=== PATIENT | male | born 1975 | race African-American/Black ===

== ENCOUNTER 2021-02-19 19:15 | Emergency (ER) | payer SELFPAY ==
[2021-02-19] MEDS ORDERED: Ibuprofen 600 MG Tab PO ONE (20:02)
--- NOTE | 2021-02-19 20:23 | EDM.PDOC ---
ED HPI GENERAL MEDICAL PROBLEM - General Chief Complaint: Fever Stated Complaint: chills Time Seen by Provider: 02/19/21 19:23 Source of Information: Reports: Patient History Limitations: Reports: No Limitations - History of Present Illness INITIAL COMMENTS - FREE TEXT/NARRATIVE: 45-year-old male presents the emergency department with 4-day history of fever, body aches, joint aches, headache and nausea. Patient states he recently returned from visiting [facility] from January 15 through February 02. He did not have any vaccinations prior to travel. States that about 4 days ago he started having chills and body aches which has progressed into a severe headache and nausea and mild sore throat. He denies any cough or shortness of breath. He denies any upper respiratory type symptoms. He states his appetite has been "on and off ". He is still taking p.o. fluids appropriately. He still can taste and smell his food. He states he had his Covid vaccination in October. He had been [place] vaccine. The patient is otherwise healthy. He does not take any prescription medications and he does not have a primary care provider. Of note, the patient has had malaria approximately 15 years ago and he states that his symptoms that he is having at this time feel quite similar to when he had malaria in the past. - Related Data Allergies Allergy/AdvReac Type Severity Reaction Status Date / Time No Known Allergies Allergy Verified 02/19/21 19:27 Home Meds: Home Meds . [No Known Home Meds] 02/19/21 [History] Social & Family History - Tobacco Use Tobacco Use Status *Q: Never Tobacco User Second Hand Smoke Exposure: No - Recreational Drug Use Recreational Drug Use: No ED ROS GENERAL - Review of Systems Review Of Systems: See Below Constitutional: Reports: Fever, Chills, Malaise, Decreased Appetite HEENT: Reports: Throat Pain Respiratory: Reports: No Symptoms Cardiovascular: Reports: No Symptoms Endocrine: Reports: No Symptoms GI/Abdominal: Reports: Decreased Appetite, Nausea. Denies: Abdominal Pain, Constipation, Diarrhea, Vomiting : Reports: No Symptoms Musculoskeletal: Reports: Joint Pain (generalized), Other (generalized body aches) Skin: Reports: No Symptoms Neurological: Reports: Headache Psychiatric: Reports: No Symptoms Hematologic/Lymphatic: Reports: No Symptoms Immunologic: Reports: No Symptoms ED EXAM, GENERAL - Physical Exam Exam: See Below Exam Limited By: No Limitations General Appearance: Alert, WD/WN, Moderate Distress Eye Exam: Bilateral Eye: EOMI Ears: Normal External Exam, Hearing Grossly Normal Nose: Normal Inspection Throat/Mouth: Normal Inspection, Normal Lips, Normal Voice, No Airway Compromise Head: Atraumatic, Normocephalic Neck: Normal Inspection, Supple, Non-Tender, Full Range of Motion Respiratory/Chest: No Respiratory Distress, Lungs Clear, Normal Breath Sounds, No Accessory Muscle Use, Chest Non-Tender Cardiovascular: Normal Peripheral Pulses, Regular Rate, Rhythm, No Murmur Peripheral Pulses: 2+: Radial (L), Radial (R) GI/Abdominal: Normal Bowel Sounds, Soft, Non-Tender, No Distention (Male) Exam: Deferred Rectal (Males) Exam: Deferred Back Exam: Normal Inspection Extremities: Normal Inspection, Normal Range of Motion, Non-Tender, No Pedal Edema, Normal Capillary Refill Neurological: Alert, Oriented, Normal Cognition Psychiatric: Normal Affect, Normal Mood Skin Exam: Warm, Dry, Intact, Normal Color, No Rash Lymphatic: No Adenopathy Course - Vital Signs Text/Narrative:: Upon assessment, the patient complains of a moderate headache. He states he took Tylenol earlier today. I have ordered for him to receive ibuprofen 600 mg. He is alert and oriented x3. He does not have any blurred vision or double vision. States he has generalized body aches and chills. His lungs are clear to auscultation and he denies any abdominal pain or discomfort. He denies any urinary symptoms. I have ordered labs to include a CBC, CMP, C-reactive protein, blood cultures x2, lactic acid level with reflex, strep a swab, Covid swab, and portable chest x-ray. I have also ordered UA with micro and culture if indicated. I have contacted infectious diseases from [place]. The [place] [facility] call nurse was going to get a hold of the infectious disease physician who is on-call and to call me back. I am most concerned that the patient could have contracted malaria while he was there as he did not have any vaccinations prior to travel. Last Recorded V/S: Last Vital Signs Temp 99 F 02/19/21 19:22 Pulse 101 H 02/19/21 19:22 Resp 18 02/19/21 19:22 BP 123/74 02/19/21 19:22 Pulse Ox 95 02/19/21 19:22 - Orders/Labs/Meds Orders: Active Orders 24 hr Category Date Time Status CULTURE BLOOD [BC] Stat Lab 02/19/21 20:00 Received CULTURE BLOOD [BC] Stat Lab 02/19/21 20:06 Received CULTURE URINE [MREF] Stat Lab 02/19/21 20:28 Received Sodium Chloride 0.9% [Normal Saline] 1,000 ml Med 02/19/21 21:00 Active IV ASDIRECTED Blood Culture x2 Reflex Set [OM.PC] Stat Oth 02/19/21 19:42 Ordered Medication Orders Sodium Chloride (Normal Saline) 1,000 mls @ 100 mls/hr IV ASDIRECTED TAWANNA Last Admin: 02/19/21 21:35 Dose: 100 mls/hr Documented by: ROSALIO Labs: Laboratory Tests 02/19/21 02/19/21 02/19/21 Range/Units 19:35 20:00 20:00 WBC 7.86 (4.23-9.07) K/mm3 RBC 5.04 (4.63-6.08) M/mm3 Hgb 14.4 (13.7-17.5) gm/dl Hct 42.1 (40.1-51.0) % MCV 83.5 (79.0-92.2) fl MCH 28.6 (25.7-32.2) pg MCHC 34.2 (32.2-35.5) g/dl RDW Std Deviation 39.8 (35.1-43.9) fL Plt Count 76 L (163-337) K/mm3 MPV 12.3 (9.4-12.3) fl Neut % (Auto) 87.3 H (34.0-67.9) % Lymph % (Auto) 6.0 L (21.8-53.1) % [place] % (Auto) 6.1 (5.3-12.2) % Eos % (Auto) 0.1 L (0.8-7.0) Baso % (Auto) 0.1 (0.1-1.2) % Neut # (Auto) 6.86 H (1.78-5.38) K/mm3 Lymph # (Auto) 0.47 L (1.32-3.57) K/mm3 [place] # (Auto) 0.48 (0.30-0.82) K/mm3 Eos # (Auto) 0.01 L (0.04-0.54) K/mm3 Baso # (Auto) 0.01 (0.01-0.08) K/mm3 Manual Slide Review Abnormal smear Sodium 133 L (136-145) mEq/L Potassium 3.6 (3.5-5.1) mEq/L Chloride 98 (98-107) mEq/L Carbon Dioxide 24 (21-32) mEq/L Anion Gap 14.6 (5-15) BUN 20 H (7-18) mg/dL Creatinine 1.2 (0.7-1.3) mg/dL Est Cr Clr Drug Dosing 81.05 mL/min Estimated GFR (MDRD) > 60 (>60) mL/min BUN/Creatinine Ratio 16.7 (14-18) Glucose 111 H (70-99) mg/dL Lactic Acid (0.4-2.0) mmol/L Calcium 8.3 L (8.5-10.1) mg/dL Total Bilirubin 7.7 H (0.2-1.0) mg/dL AST 91 H (15-37) U/L ALT 59 (16-63) U/L Alkaline Phosphatase 122 H (46-116) U/L C-Reactive Protein 21.0 H* (<1.0) mg/dL Total Protein 7.0 (6.4-8.2) g/dl Albumin 3.2 L (3.4-5.0) g/dl Globulin 3.8 gm/dL Albumin/Globulin Ratio 0.8 L (1-2) Urine Color (Yellow) Urine Appearance (Clear) Urine pH (5.0-8.0) Ur Specific Henderson (1.005-1.030) Urine Protein (Negative) Urine Glucose (UA) (Negative) Urine Ketones (Negative) Urine Occult Blood (Negative) Urine Nitrite (Negative) Urine Bilirubin (Negative) Urine Urobilinogen (0.2-1.0) Ur Leukocyte Esterase (Negative) Urine RBC (0-5) /hpf Urine WBC (0-5) /hpf Ur Epithelial Cells (0-5) /hpf Urine Bacteria (FEW) /hpf Urine Mucus (FEW) /hpf SARS-CoV-2 RNA (MO) (NEGATIVE) Group A Strep (PCR) Not detected (NOT DETECT) 02/19/21 02/19/21 02/19/21 Range/Units 20:06 20:20 20:28 WBC (4.23-9.07) K/mm3 RBC (4.63-6.08) M/mm3 Hgb (13.7-17.5) gm/dl Hct (40.1-51.0) % MCV (79.0-92.2) fl MCH (25.7-32.2) pg MCHC (32.2-35.5) g/dl RDW Std Deviation (35.1-43.9) fL Plt Count (163-337) K/mm3 MPV (9.4-12.3) fl Neut % (Auto) (34.0-67.9) % Lymph % (Auto) (21.8-53.1) % [place] % (Auto) (5.3-12.2) % Eos % (Auto) (0.8-7.0) Baso % (Auto) (0.1-1.2) % Neut # (Auto) (1.78-5.38) K/mm3 Lymph # (Auto) (1.32-3.57) K/mm3 [place] # (Auto) (0.30-0.82) K/mm3 Eos # (Auto) (0.04-0.54) K/mm3 Baso # (Auto) (0.01-0.08) K/mm3 Manual Slide Review Sodium (136-145) mEq/L Potassium (3.5-5.1) mEq/L Chloride (98-107) mEq/L Carbon Dioxide (21-32) mEq/L Anion Gap (5-15) BUN (7-18) mg/dL Creatinine (0.7-1.3) mg/dL Est Cr Clr Drug Dosing mL/min Estimated GFR (MDRD) (>60) mL/min BUN/Creatinine Ratio (14-18) Glucose (70-99) mg/dL Lactic Acid 0.8 (0.4-2.0) mmol/L Calcium (8.5-10.1) mg/dL Total Bilirubin (0.2-1.0) mg/dL AST (15-37) U/L ALT (16-63) U/L Alkaline Phosphatase (46-116) U/L C-Reactive Protein (<1.0) mg/dL Total Protein (6.4-8.2) g/dl Albumin (3.4-5.0) g/dl Globulin gm/dL Albumin/Globulin Ratio (1-2) Urine Color Jennifer H (Yellow) Urine Appearance Clear (Clear) Urine pH 6.5 (5.0-8.0) Ur Specific Henderson 1.020 (1.005-1.030) Urine Protein 3+ H (Negative) Urine Glucose (UA) Trace H (Negative) Urine Ketones Trace H (Negative) Urine Occult Blood 1+ H (Negative) Urine Nitrite Positive H (Negative) Urine Bilirubin 2+ H (Negative) Urine Urobilinogen >=8.0 H (0.2-1.0) Ur Leukocyte Esterase Negative (Negative) Urine RBC 0-5 (0-5) /hpf Urine WBC 5-10 H (0-5) /hpf Ur Epithelial Cells 0-5 (0-5) /hpf Urine Bacteria Many H (FEW) /hpf Urine Mucus Rare (FEW) /hpf SARS-CoV-2 RNA (MO) Negative (NEGATIVE) Group A Strep (PCR) (NOT DETECT) Meds: Medications Generic Name Dose Route Start Last Admin Trade Name Freq PRN Reason Stop Dose Admin Sodium Chloride 1,000 mls @ 100 mls/hr 02/19/21 21:00 02/19/21 21:35 Normal Saline IV 100 mls/hr ASDIRECTED TAWANNA Administration Discontinued Medications Generic Name Dose Route Start Last Admin Trade Name Freq PRN Reason Stop Dose Admin Ibuprofen 600 mg 02/19/21 20:02 02/19/21 20:23 Ibuprofen 600 Mg Tab PO 02/19/21 20:03 600 mg ONETIME ONE Administration - Re-Assessments/Exams Free Text/Narrative Re-Assessment/Exam: 02/19/21 20:[address] Mckeon, infectious disease specialist at [facility] in [place] and she recommends that the patient have a malaria smear completed or at least an antigen test. We do not have that rapid test available at our facility. So I feel this patient does need to be transferred to a facility capable for testing and treating possibility of him having malaria. I did speak with the emergency room physician Dr. Baugh, at [facility] and he agreed to accept the patient in transport. I have ordered for the patient to receive normal saline at 100 mL's per hour and he will be transported via ambulance. The patient was awaiting aware of this and he has agreed. 02/19/21 21:55 Hematology reveals a WBC of 7.86, hemoglobin 14.4, hematocrit 42.1, platelet count 76 manual slide is pending, urinalysis reveals 3+ protein, trace glucose, trace of ketones, 1+ occult blood, nitrite positive, 2+ bilirubin, greater than or equal to 8.0 urobilinogen, leukocyte Estrace is negative, micro is pending. Serology reveals group A strep is not detected. Covid swab and CMP is pending. 02/19/21 21:55 Radiologist impression portable view of the chest: 1. Heart is enlarged. Please correlate if etiology is clinically known. 2. Nothing acute is otherwise seen on portable chest x-ray. Ambulance crew is here to transport the patient to [facility] in [place]. 02/19/21 21:58 Lab was here to draw malaria testing which we normally do send to [place] to be read. They are going to send the slides along with the ambulance crew to [place] with the patient. 02/19/21 22:29 Chemistry reveals a sodium of 133, potassium 3.6, anion gap 14.6, BUN 20, creatinine 1.2, glucose 111, lactic active 0.8, calcium 8.3, total bilirubin 7.7, AST 91, ALT 59, alk phos 122, C-reactive protein 21.[address] Baugh had requested that lab work be faxed to him. I have advised our rn coronary care unit to do this. Departure - Departure Time of Disposition: 21:58 Disposition: DC/Tfer to [facility] 02 Condition: Fair Clinical Impression: Malaria screening Headache Qualifiers: Headache type: unspecified Headache chronicity pattern: acute headache Intractability: not intractable Qualified Code(s): R51.9 - Headache, unspecified - Discharge Information Referrals: PCP,None [Primary Care Provider] - Forms: ED Department Discharge Sepsis Event Note (ED) - Evaluation Sepsis Screening Result: No Definite Risk - Focused Exam Vital Signs: Vital Signs Temp Pulse Resp BP Pulse Ox 02/19/21 19:22 99 F 101 H 18 123/74 95 - My Orders Last 24 Hours: My Active Orders 02/19/21 19:42 Blood Culture x2 Reflex Set [OM.PC] Stat 02/19/21 20:00 CULTURE BLOOD [BC] Stat 02/19/21 20:06 CULTURE BLOOD [BC] Stat 02/19/21 20:28 CULTURE URINE [MREF] Stat 02/19/21 21:00 Sodium Chloride 0.9% [Normal Saline] 1,000 ml IV ASDIRECTED - Assessment/Plan Last 24 Hours: My Active Orders 02/19/21 19:42 Blood Culture x2 Reflex Set [OM.PC] Stat 02/19/21 20:00 CULTURE BLOOD [BC] Stat 02/19/21 20:06 CULTURE BLOOD [BC] Stat 02/19/21 20:28 CULTURE URINE [MREF] Stat 02/19/21 21:00 Sodium Chloride 0.9% [Normal Saline] 1,000 ml IV ASDIRECTED
[2021-02-19] MEDS ORDERED: Sodium Chloride 0.9% 1,000 ML IV SCH (21:00)
--- NOTE | 2021-02-19 21:33 | CR ---
Chest: Portable view of the chest was obtained. Comparison: No prior chest imaging is available. Heart is enlarged. Upper mediastinum is within normal limits. Lungs are clear with no acute parenchymal change. No acute osseous abnormality is appreciated. Impression: 1. Heart is enlarged. Please correlate if etiology is clinically known. 2. Nothing acute is otherwise seen on portable chest x-ray. Diagnostic code #2
== END 2021-02-19 21:45 ==
LOC: JD.ED 19:15
DX: R51.9 Headache, unspecified (principal); Z11.6 Encounter for screening for other protozoal diseases and helminthiases; Z20.822 Contact with and (suspected) exposure to COVID-19
CPT/HCPCS: 36415; 71045; 80053; 81001; 83605; 85025; 86140; 87040; 87086; 87635; 87651; 99285; A9270; J7030; 99284; U0002

== ENCOUNTER 2021-10-14 12:34 | Emergency (ER) | payer OTHER | END 2021-10-14 13:55 | disposition home or self-care (01) | LOC: JD.ED 12:34 | DX: M75.51 Bursitis of right shoulder (principal); M75.21 Bicipital tendinitis, right shoulder | CPT/HCPCS: 73030-26-RT; 73030-RT; 99283-25 ==

== ENCOUNTER 2021-10-18 23:31 | Emergency (ER) | payer OTHER ==
[2021-10-19] MEDS ORDERED: valACYclovir 500 MG Tab PO ONE (00:46)
[2021-10-19] MEDS ORDERED: predniSONE 20 MG Tab PO ONE (00:47)
== END 2021-10-19 01:18 | disposition home or self-care (01) ==
LOC: JD.ED 23:31
DX: S40.011A Contusion of right shoulder, initial encounter (principal); M75.21 Bicipital tendinitis, right shoulder; G51.0 Bell's palsy
CPT/HCPCS: 99283; A9270; J7512

== ENCOUNTER 2022-12-21 10:46 | Emergency (ER) | payer OTHER ==
[2022-12-21 11:37] LABS: ESTIMATED GFR 82 mL/min (>60)
[2022-12-21] MEDS ORDERED: Iopamidol 755 Mg/ML 100 ML Bottle IVPUSH ONE (16:28)
[2022-12-21] MEDS ORDERED: Sodium Chloride 0.9% 100 ML IV SCH (16:30)
== END 2022-12-21 13:50 | disposition home or self-care (01) ==
LOC: JD.ED 10:46
DX: R53.1 Weakness (principal); R20.0 Anesthesia of skin; R20.2 Paresthesia of skin; Z86.16 Personal history of COVID-19
CPT/HCPCS: 36415; 70450; 70496; 70498; 80053; 82947; 84484; 85025; 85379; 85610; 85730; 93005; 99284; J3490; Q9967; 93010